=== PATIENT | female | born 1990 | race Caucasian/White ===

== ENCOUNTER 2017-04-08 00:26 | Inpatient (IN) | payer SELFPAY ==
[~2017-04-08] VITALS: Ht 162.6 cm; Wt 96.8 kg
[2017-04-08] MEDS ORDERED: PREN1TAB80 PO (01:20)
[2017-04-08] MEDS ORDERED: RINGERS SOLUTION,LACTATED 1,000 ML IV PRN (02:16)
[2017-04-08] MEDS ORDERED: RINGERS SOLUTION,LACTATED 1,000 ML IV SCH (02:16)
[2017-04-08] MEDS ORDERED: AMPICILLIN SODIUM 2 GM/NS 100 ML IV ONE (02:30)
[2017-04-08] MEDS ORDERED: CITRIC ACID/SODIUM CITRATE 30 ML SOLUTION UDCUP PO PRN (02:30)
[2017-04-08] MEDS ORDERED: METOCLOPRAMIDE HCL 5 MG/ML 2 ML VIAL IVP PRN (02:30)
[2017-04-08] MEDS ORDERED: LIDOCAINE HCL/PF 2% 5 ML VIAL ONE (02:52)
[2017-04-08] MEDS ORDERED: ROPIVACAINE HCL 0.2% 100 ML ED ONE (02:53)
[2017-04-08 02:59] LABS: BASOPHILS % (AUTO) 0.3 % (0.0-2.0); EOSINOPHILS % (AUTO) 0.5 % (1.0-6.0); HEMATOCRIT 34.8 % (36-46); HEMOGLOBIN 11.9 g/dL (12.0-16.0); LYMPHOCYTES # (AUTO) 1.6 K/uL (1.0-4.8); MEAN CORPUSCULAR HEMOGLOBIN 29.8 pg (26.0-34.0); MEAN CORPUSCULAR HGB CONC 34.1 G/dL (31.0-37.0); MEAN CORPUSCULAR VOLUME 87 fL (80-100); MONOCYTES # (AUTO) 0.5 K/uL (0.1-1.0); MONOCYTES % (AUTO) 6.7 % (2.0-9.0); NEUTROPHILS # (AUTO) 5.3 K/uL (1.8-7.7); NEUTROPHILS % (AUTO) 70.5 % (40.0-70.0); PLATELET COUNT (AUTO)-OB 199 K/uL (150-450); RED BLOOD CELL COUNT(AUTO) 3.98 MIL/uL (4.00-5.20); RED CELL DISTRIBUTION WIDTH 15.3 % (11.5-14.5)
[2017-04-08 03:45] VITALS: BP 123/74
[2017-04-08 04:13] LABS: RUBELLA SCREEN (IGG) IMMUNE (IMMUNE)
[2017-04-08] MEDS ORDERED: AMPICILLIN SODIUM 1 GM/NS 50 ML IV SCH (06:30)
[2017-04-08] MEDS ORDERED: NALBUPHINE HCL 10 MG/ML VIAL IVP PRN (07:30)
[2017-04-08] MEDS ORDERED: FentaNYL/BUPIV 0.125%/NS/PF 200 ML ED PRN (07:30)
[2017-04-08] MEDS ORDERED: PROMETHAZINE HCL 12.5 MG in SODIUM CHLORIDE 0.9% 50 ML IV PRN (07:30)
[2017-04-08] MEDS ORDERED: DiphenhydrAMINE HCL 50 MG/ML VIAL IVP PRN (07:30)
[2017-04-08] MEDS ORDERED: ONDANSETRON HCL 4 MG/2 ML VIAL IVP PRN (07:30)
[2017-04-08] MEDS ORDERED: OXYTOCIN 30 UNITS/LACT RINGERS 500 ML IV PRN (08:23)
[2017-04-08] MEDS ORDERED: LANOLIN 7 GM OINTMENT TP PRN (10:30)
[2017-04-08] MEDS ORDERED: ACETAMINOPHEN/CODEINE 300-30 MG TABLET PO PRN ×2 (10:30)
[2017-04-08] MEDS ORDERED: GLYCERIN/WITCH HAZEL LEAF 40 PADS JAR TP PRN (10:30)
[2017-04-08] MEDS ORDERED: BENZOCAINE 20%/MENTHOL 56 GM SPRAY CANISTER TP PRN (10:30)
[2017-04-08] MEDS: IBUPROFEN 800 MG TABLET PO SCH ×2 (12:14→18:50)
[2017-04-08] MEDS ORDERED: MAGNESIUM HYDROXIDE SUSPENSION 30 ML UDCUP PO SCH (21:00)
[2017-04-09] MEDS: IBUPROFEN 800 MG TABLET PO SCH (00:04)
[2017-04-09] MEDS ORDERED: IBUP-2071 PO (11:01)
[2017-04-09] MEDS ORDERED: DSS100 PO (11:01)
[2017-04-09] MEDS ORDERED: FERR-89 PO (11:03)
== END 2017-04-09 14:00 | disposition home or self-care (01) | DRG 775 ==
LOC: 4S 00:26 → OBSVTOIN 00:26
PROVIDERS: ADMIT Obstetrics & Gynecology; ATTEND Obstetrics & Gynecology
PROC: 10E0XZZ Delivery of Products of Conception, External Approach (ICD-10-PCS; principal; 2017-04-08)
PROC: 0HQ9XZZ Repair Perineum Skin, External Approach (ICD-10-PCS; 2017-04-08)
PROC: 3E0R3BZ Introduction of Anesthetic Agent into Spinal Canal, Percutaneous Approach (ICD-10-PCS; 2017-04-08)
PROC: 00HU33Z Insertion of Infusion Device into Spinal Canal, Percutaneous Approach (ICD-10-PCS; 2017-04-08)
DX: O70.0 First degree perineal laceration during delivery (principal); Z37.0 Single live birth; Z3A.39 39 weeks gestation of pregnancy
CPT/HCPCS: 80307; 86592; 86762; 86850; 86900; 86901; 87340; J0290; J2590; J2795; J3490; J7120